=== PATIENT | female | born 1965 | race Caucasian/White ===

== ENCOUNTER 2020-12-05 22:05 | Emergency (ER) | payer BC, OTHER ==
[~2020-12-05] VITALS: Ht 172.7 cm; Wt 96.9 kg
--- NOTE | 2020-12-05 22:17 | NUR ---
C-COLAR PLACED IN TRIAGE
[2020-12-05] MEDS ORDERED: KETOROLAC 30 MG/1 ML IM ONE (22:30)
[2020-12-05] MEDS ORDERED: CYCLOBENZAPRINE 10 MG TABLET PO ONE (22:30)
[2020-12-05] MEDS ORDERED: CYCLOBENZAPRINE 10 MG TABLET ONE (22:40)
[2020-12-05] MEDS ORDERED: KETOROLAC 60 MG/2 ML ONE (22:40)
[2020-12-05 23:53] VITALS: BP 134/83
--- NOTE | 2020-12-05 23:54 | NUR ---
Pt instructed not to drive. Pt has friend to drive her home. Rx reviewed. Patient/Caregiver given discharge instructions and they have confirmed that they understand the instructions. Patient ambulatory with steady gait.
== END 2020-12-05 23:56 | disposition home or self-care (01) ==
LOC: ED 23:43
DX: S16.1XXA Strain of muscle, fascia and tendon at neck level, initial encounter (principal); S20.219A Contusion of unspecified front wall of thorax, initial encounter; V49.49XA Driver injured in collision with other motor vehicles in traffic accident, initial encounter; Y93.89 Activity, other specified; Y92.410 Unspecified street and highway as the place of occurrence of the external cause; Y99.8 Other external cause status
CPT/HCPCS: 72040; 96372; 99283; J1885